=== PATIENT | male | born 1965 | race Two or more races ===

== ENCOUNTER 2022-08-22 16:01 | Emergency (ER) | payer OTHER ==
[~2022-08-22] VITALS: Ht 160 cm; Wt 60.3 kg
[2022-08-22] MEDS ORDERED: IV NORMAL SALINE 1000 ML BAG IV ONE (16:30)
[2022-08-22] MEDS ORDERED: ONDANSETRON 4 MG/2 ML VIAL IV ONE (16:30)
[2022-08-22 16:51] LABS: HEMATOCRIT 44.2 % (36.7-47.1); MEAN CORPUSCULAR HEMOGLOBIN 31.4 uug (23.8-33.4); MEAN CORPUSCULAR VOLUME 91.6 fL (73.0-96.2); PLATELET COUNT (AUTO) 264 K/uL (152-348)
[2022-08-22] MEDS ORDERED: LEVE1000 PO (17:02)
[2022-08-22] MEDS ORDERED: FAMO-132 PO (17:02)
[2022-08-22] MEDS ORDERED: SENN-261 PO (17:02)
[2022-08-22] MEDS ORDERED: MAGN30OR PO (17:02)
[2022-08-22] MEDS ORDERED: ESCI10TA PO (17:02)
[2022-08-22] MEDS ORDERED: ATOR40TA PO (17:02)
[2022-08-22] MEDS ORDERED: LABE200T5 PO (17:02)
[2022-08-22] MEDS ORDERED: ACET-73 PO (17:02)
[2022-08-22] MEDS ORDERED: METF-440 PO (17:02)
[2022-08-22] MEDS ORDERED: GLUC1KIT IM (17:02)
[2022-08-22] MEDS ORDERED: CLOP75TA15 PO (17:02)
[2022-08-22] MEDS ORDERED: ONDA4TAB5 PO (17:02)
[2022-08-22] MEDS ORDERED: DOCU-141 PO (17:02)
[2022-08-22] MEDS ORDERED: LISI10TA29 PO (17:02)
[2022-08-22] MEDS ORDERED: INSU100V39 SQ (17:02)
[2022-08-22] MEDS ORDERED: HYDR-894 PO (17:02)
[2022-08-22] MEDS ORDERED: CALC1TAB30 PO (17:02)
[2022-08-22] MEDS ORDERED: ASPI81TA31 PO (17:02)
[2022-08-22 17:09] LABS: ALANINE AMINOTRANSFERASE 35 U/L (16-63); ALKALINE PHOSPHATASE 88 U/L (50-136); ASPARTATE AMINOTRANSFERASE 12 U/L (15-37); BILIRUBIN,DIRECT 0.2 mg/dL (0.0-0.2); BILIRUBIN,TOTAL 0.6 mg/dL (0.2-1.0); CARBON DIOXIDE 28 mmol/L (21-32); CHLORIDE 101 mmol/L (98-107); CREATININE 1.1 mg/dL (0.6-1.3); LIPASE 128 U/L (73-393); POTASSIUM 5.2 mmol/L (3.5-5.1); TOTAL PROTEIN, SERUM 7.4 g/dL (6.4-8.2); UREA NITROGEN, BLOOD 23 mg/dL (7-18)
[2022-08-22 17:15] LABS: GLUCOSE 309 mg/dL (74-106)
[2022-08-22] MEDS ORDERED: ONDANSETRON 4 MG/2 ML VIAL ONE (17:38)
[2022-08-22 18:03] LABS: *BILIRUBIN,URIN NEGATIVE (NEGATIVE); *BLOOD, URINE NEGATIVE (NEGATIVE); *CLARITY,URINE CLEAR (CLEAR); *COLOR,URINE YELLOW (YELLOW); *KETONES,URINE 1+ (NEGATIVE); *UROBILINOGEN,URINE 0.2 E.U./dl (NORMAL); LEUKOCYTE ESTERASE ,URINE NEGATIVE (NEGATIVE); NITRITE, URINE NEGATIVE (NEGATIVE)
[2022-08-22 18:07] LABS: UGLUCOSE 2+ (NEGATIVE)
[2022-08-22 18:08] LABS: BACTERIA,URINE FEW /HPF (NONE SEEN); RBC,URINE 0-3 /HPF (0-3); SQUAMOUS EPITHELIAL CELL,UR NONE SEEN /HPF (NONE SEEN); WBC,URINE 0-3 /HPF (0-3)
--- NOTE | 2022-08-22 20:24 | NUR ---
Patient presents to the ER, C/O abdominal pain/nausea/vomiting. Patient A/O X 3. Seen by the MD #[id number] angio-cath to (RT) F/A, blood collected and sent. Patient medicated as per MD orders (see eMAR). Patient transported safely via stretcher to and from [place]. Patient is stable on the stretcher, in the lowest position, call [place] within reach. Ambulance scheduled for Patients return to [facility]. Report given to SPEEDY Toribio. Discharge instruction given, explained to patient, and sent to facility. Patient departed.
== END 2022-08-22 18:50 ==
LOC: ER 16:08
DX: R11.2 Nausea with vomiting, unspecified (principal); I69.354 Hemiplegia and hemiparesis following cerebral infarction affecting left non-dominant side; R13.10 Dysphagia, unspecified; R53.1 Weakness; F32.A Depression, unspecified; E11.65 Type 2 diabetes mellitus with hyperglycemia; Z79.4 Long term (current) use of insulin; I44.4 Left anterior fascicular block; R91.8 Other nonspecific abnormal finding of lung field; E87.5 Hyperkalemia; E86.0 Dehydration
CPT/HCPCS: 80076; 80048; 81001; 83690; 85025; 84484; 36415; 93005; 71045; 74176; 99285; 96361; 96374; J2405; J7040; A4663